=== PATIENT | female | born 1960 | race Caucasian/White ===

== ENCOUNTER 2016-11-21 05:47 | Emergency (ER) | payer MEDICAID ==
[~2016-11-21] VITALS: Ht 167.6 cm; Wt 77.1 kg
--- NOTE | 2016-11-21 05:47 | NUR ---
PATIENT BIB BLS TO ER BED 7.
[2016-11-21 06:04] VITALS: BP 139/92
--- NOTE | 2016-11-21 06:05 | NUR ---
56 Y F BIBA-C/O LEG PAIN, STATES HAS BOTHERED HER ALL NOC, PAIN IS 10/10. PT AT [facility]. EARLIER TODAY FOR LEG PAIN. MED HX: CVA-LEFT SIDED WEAKNESS, RT HAND CONTRACTED, HX SEIZURES, GERD,HTN,HIGH CHOLESTEROL AND ARTHRISTIS MEDS: KEPPRA/BACLOFEN/GABAPENTEN
--- NOTE | 2016-11-21 06:12 | NUR ---
Patient being evaluated by physician at bedside.
[2016-11-21] MEDS ORDERED: KETOROLAC 60 MG/2 ML VIAL IM ONE (06:25)
--- NOTE | 2016-11-21 06:38 | NUR ---
XRAY AT BEDSIDE
--- NOTE | 2016-11-21 07:00 | NUR ---
Patient discharged with v/s stable. Written and verbal after care instructions given and explained. Patient alert, oriented and verbalized understanding of instructions. Ambulatory with by caregiver. All questions addressed prior to discharge. ID band removed. Patient advised to follow up with PMD. Rx of FLEXERIL 10MG given. Patient educated on indication of medication including possible reaction and side effects. Opportunity to ask questions provided and answered.
[2016-11-21 07:01] VITALS: BP 135/82
== END 2016-11-21 07:00 | disposition home or self-care (01) ==
LOC: MED 05:47
DX: M25.562 Pain in left knee (principal); Z91.040 Latex allergy status; Z86.73 Personal history of transient ischemic attack (TIA), and cerebral infarction without residual deficits
CPT/HCPCS: 73562; 96372; 99284; J1885